=== PATIENT | male | born 1985 | race Caucasian/White ===

== ENCOUNTER 2023-05-31 19:06 | Emergency (ER) | payer OTHER ==
[~2023-05-31] VITALS: Ht 175.3 cm; Wt 113.4 kg
[2023-05-31 19:59] VITALS: BP 151/98; TEMP 98.1
[2023-05-31] MEDS ORDERED: AMOXICILLIN TRIHYDRATE 500 MG CAPSULE PO ONE (21:00)
[2023-05-31] MEDS ORDERED: KETOROLAC TROMETHAMINE INJ 30 MG/ML VIAL IM ONE (21:00)
[2023-05-31] MEDS ORDERED: KETOROLAC TROMETHAMINE INJ 30 MG/ML VIAL ONE (21:03)
[2023-05-31] MEDS ORDERED: AMOXICILLIN TRIHYDRATE 250 MG CAPSULE ONE (21:03)
[2023-05-31] MEDS ORDERED: AMOX500C2 PO (21:08)
[2023-05-31] MEDS ORDERED: NAPR-1009 PO (21:08)
[2023-05-31 21:14] VITALS: O2SAT 97
== END 2023-05-31 21:14 | disposition home or self-care (01) ==
LOC: ER 19:06
DX: H66.92 Otitis media, unspecified, left ear (principal); Z91.018 Allergy to other foods
CPT/HCPCS: 99283; 96372; J1885